=== PATIENT | male | born 1965 | race Hispanic/Latino ===

== ENCOUNTER 2019-05-11 08:51 | Emergency (ER) | payer OTHER ==
--- NOTE | 2019-05-11 09:29 | ER ---
Nurse's Notes [facility] Name: Salomón Lindquist Age: 54 yrs Sex: Male : 1965 Arrival Date: 05/11/2019 Time: 08:57 Bed 7 Private MD: Diagnosis: Hypertension Presentation: 05/11 09:06 Presenting complaint: Patient states: had BP checked at work and it was high, does not iw remember the number, not on any BP meds, denies chest pain, headache or dizziness. Transition of care: patient was not received from another setting of care. 09:06 Method Of Arrival: Ambulatory iw 09:07 Risk Assessment: Do you want to hurt yourself or someone else? Patient reports no iw desire to harm self or others. Initial Sepsis Screen: Does the patient meet any 2 criteria? No. Patient's initial sepsis screen is negative. Does the patient have a suspected source of infection? No. Patient's initial sepsis screen is negative. Care prior to arrival: None. 09:07 Acuity: RAVINDRA 3 iw 09:07 Onset of symptoms was May 11, 2019. aa5 Historical: - Allergies: 09:07 No Known Allergies; iw - Home Meds: 09:07 None [Active]; iw - PMHx: 09:07 None; iw - PSHx: 09:07 None; iw - Immunization history:: Adult Immunizations unknown. - Ebola Screening: : Patient negative for fever greater than or equal to 101.5 degrees Fahrenheit, and additional compatible Ebola Virus Disease symptoms Patient denies exposure to infectious person Patient denies travel to an Ebola-affected area in the 21 days before illness onset No symptoms or risks identified at this time. - Family history:: not pertinent. - Social history:: Smoking status: Patient/guardian denies using tobacco. - Hospitalizations: : No recent hospitalization is reported. Screenin:15 Abuse screen: Denies threats or abuse. Nutritional screening: No deficits noted. aa5 Tuberculosis screening: No symptoms or risk factors identified. Fall Risk None identified. Assessment: 09:07 General: Appears comfortable, Behavior is calm, cooperative. Pain: Denies pain. Neuro: aa5 Level of Consciousness is awake, alert, obeys commands, Oriented to person, place, time, situation. Cardiovascular: Heart tones S1 S2 present Rhythm is regular. Respiratory: Airway is patent Respiratory effort is even, unlabored, Respiratory pattern is regular, symmetrical. GI: No signs and/or symptoms were reported involving the gastrointestinal system. Patient currently denies nausea, vomiting. : No signs and/or symptoms were reported regarding the genitourinary system. EENT: No signs and/or symptoms were reported regarding the EENT system. Derm: Skin is pink, warm \T\ dry. Musculoskeletal: Range of motion: intact in all extremities. 09:20 Reassessment: Patient is alert, oriented x 3, equal unlabored respirations, skin aa5 warm/dry/pink. Patient denies pain at this time. 09:20 Reassessment: Pt given cup of water . aa5 09:52 Reassessment: Patient is alert, oriented x 3, equal unlabored respirations, skin aa5 warm/dry/pink. Patient denies pain at this time. Vital Signs: 09:07 BP 158 / 97; Pulse 80; Resp 16 S; Temp 98.9(O); Pulse Ox 98% on R/A; Weight 63.5 kg aa5 (R); Height 5 ft. 6 in. (167.64 cm) (R); Pain 0/10; 09:40 BP 146 / 85; Pulse 77; Resp 16 S; Pulse Ox 97% on R/A; Pain 0/10; aa5 09:07 Body Mass Index 22.60 (63.50 kg, 167.64 cm) aa5 ED Course: 08:57 Patient arrived in ED. mr 09:03 Artemio Thomas MD is Attending Physician. rn 09:04 Serena Banerjee, MARCIA is Primary Nurse. aa5 09:07 Arm band placed on. iw 09:07 Patient has correct armband on for positive identification. Bed in low position. Call aa5 light in reach. Side rails up X 1. 09:08 Triage completed. iw 09:30 EKG done, by senior laboratory technician. reviewed by Artemio Thomas MD. at1 09:58 No provider procedures requiring assistance completed. Patient did not have IV access aa5 during this emergency room visit. Administered Medications: No medications were administered Outcome: 09:28 Discharge ordered by . rn 09:52 Discharged to home ambulatory. aa5 09:52 Condition: stable 09:52 Discharge instructions given to patient, Instructed on discharge instructions, follow up and referral plans. Demonstrated understanding of instructions, follow-up care. 09:58 Patient left the ED. aa5 Signatures: Flaquita Villatoro Irene, RN Artemio Padgett MD MD rn Calderon, Audri, RN RN aa5 Shannon Lerner, measurement supervisor EKG Tat1
--- NOTE | 2019-05-11 09:29 | EDPHYS ---
Physician Documentation [facility] Name: Salomón Lindquist Age: 54 yrs Sex: Male : 1965 Arrival Date: 05/11/2019 Time: 08:57 Bed 7 Private MD: ED Physician Artemio Thomas HPI: 05/11 09:09 This 54 yrs old Male presents to ER via Ambulatory with complaints of High rn Blood Pressure. 09:09 The patient has elevated blood pressure and discovered this work. Onset: The rn symptoms/episode began/occurred today. Modifying factors:. Severity of symptoms: At its worst the blood pressure was mild, in the emergency department the blood pressure is unchanged. The patient has experienced similar episodes in the past. Reports has intermittent hypertension, has never been put on medication, feels fine, reports felt like BP was elevated, told [facility], and took BP, was elevated, not sure of number, and sent here for medical clearance. States feels fine, currently asymptomatic. Denies chest pain/sob/abd pain/vomiting/diarrhea.. Historical: - Allergies: 09:07 No Known Allergies; iw - Home Meds: 09:07 None [Active]; iw - PMHx: 09:07 None; iw - PSHx: 09:07 None; iw - Immunization history:: Adult Immunizations unknown. - Ebola Screening: : Patient negative for fever greater than or equal to 101.5 degrees Fahrenheit, and additional compatible Ebola Virus Disease symptoms Patient denies exposure to infectious person Patient denies travel to an Ebola-affected area in the 21 days before illness onset No symptoms or risks identified at this time. - Family history:: not pertinent. - Social history:: Smoking status: Patient/guardian denies using tobacco. - Hospitalizations: : No recent hospitalization is reported. ROS: 09:09 Constitutional: Negative for fever, chills, and weight loss, Eyes: Negative for injury, rn pain, redness, and discharge, Neck: Negative for injury, pain, and swelling, Cardiovascular: Negative for chest pain, palpitations, and edema, Respiratory: Negative for shortness of breath, cough, wheezing, and pleuritic chest pain, Abdomen/GI: Negative for abdominal pain, nausea, vomiting, diarrhea, and constipation, MS/Extremity: Negative for injury and deformity, Skin: Negative for injury, rash, and discoloration, Neuro: Negative for headache, weakness, numbness, tingling, and seizure. Exam: 09:09 Constitutional: This is a well developed, well nourished patient who is awake, alert, rn and in no acute distress. Ambulatory to room without difficulty or assistance. Head/Face: Normocephalic, atraumatic. ENT: MMM Neck: Trachea midline, no thyromegaly or masses palpated, and no cervical lymphadenopathy. Supple, full range of motion without nuchal rigidity, or vertebral point tenderness. No Meningismus. Cardiovascular: Regular rate and rhythm. No pulse deficits. Respiratory: Lungs have equal breath sounds bilaterally, clear to auscultation. No increased work of breathing, no retractions or nasal flaring. Abdomen/GI: soft, non-tender MS/ Extremity: Pulses equal, no cyanosis. Neurovascular intact. Full, normal range of motion. Equal circumference. Neuro: Awake and alert, GCS 15, oriented to person, place, time, and situation. Cranial nerves II-XII grossly intact. Motor strength 5/5 in all extremities. Sensory grossly intact. Cerebellar exam normal. Normal gait. 09:24 ECG was reviewed by the Attending Physician. rn Vital Signs: 09:07 BP 158 / 97; Pulse 80; Resp 16 S; Temp 98.9(O); Pulse Ox 98% on R/A; Weight 63.5 kg aa5 (R); Height 5 ft. 6 in. (167.64 cm) (R); Pain 0/10; 09:40 BP 146 / 85; Pulse 77; Resp 16 S; Pulse Ox 97% on R/A; Pain 0/10; aa5 09:07 Body Mass Index 22.60 (63.50 kg, 167.64 cm) aa5 MDM: 09:03 Patient medically screened. rn 09:24 Differential diagnosis: asymptomatic HTN. Data reviewed: vital signs, nurses notes, rn EKG, and as a result, I will discharge patient. Test interpretation: by ED physician or midlevel provider: ECG. Counseling: I had a detailed discussion with the patient and/or guardian regarding: the historical points, exam findings, and any diagnostic results supporting the discharge/admit diagnosis, the need for outpatient follow up, to return to the emergency department if symptoms worsen or persist or if there are any questions or concerns that arise at home. Special discussion: I discussed with the patient/guardian in detail that at this point there is no indication for admission to the hospital. It is understood, however, that if the symptoms persist or worsen the patient needs to return immediately for re-evaluation. Based on the history and exam findings, there is no indication for further emergent testing or inpatient evaluation. I discussed with the patient/guardian the need to see the primary care provider for further evaluation of the symptoms. ED course: Recommend buying BP machine for home with documentation, doesn't have trend or average to justify medication. Will f/u with pcp when gets money.. 05/11 09:11 Order name: EKG; Complete Time: :13 bd EC:24 Rate is 82 beats/min. Rhythm is regular. Left axis deviation noted. QRS is positive in rn lead I and negative in lead aVF. NM interval is normal. QRS interval is normal. QT interval is normal. No Q waves. T waves are Normal. No ST changes noted. Clinical impression: No evidence of ischemia. Interpreted by me. Reviewed by me. Administered Medications: No medications were administered Disposition: 05/11/19 09:28 Discharged to Home. Impression: Hypertension. - Condition is Stable. - Discharge Instructions: Hypertension. - Medication Reconciliation Form, Thank You Letter, Antibiotic Education, Prescription Opioid Use, Work release form form. - Follow up: Private Physician; When: As needed; Reason: Recheck today's complaints, Re-evaluation by your physician. - Problem is new. - Symptoms have improved. Signatures: Caitie Alexandra RN RN iw Nieto, Roman, MD MD rn Calderon, Audri, RN RN aa5 Corrections: (The following items were deleted from the chart) 09:58 09:28 05/11/2019 09:28 Discharged to Home. Impression: Hypertension. Condition is aa5 Stable. Forms are Medication Reconciliation Form, Thank You Letter, Antibiotic Education, Prescription Opioid Use. Follow up: Private Physician; When: As needed; Reason: Recheck today's complaints, Re-evaluation by your physician. Problem is new. Symptoms have improved. rn
[2019-05-11 10:06] VITALS: TEMP 98.9
[2019-05-11 10:09] VITALS: BP 146/85; O2SAT 97
--- NOTE | 2019-05-11 10:37 | EKG ---
Test Date: 2019-05-11 Test Time: 09:23:16 Alteration Inspector: ENRIQUE MEASUREMENT RESULTS: Intervals: Rate: 82 IN: 134 QRSD: 98 QT: 386 QTc: 450 Fletcher: P: 54 IN: 134 QRS: -67 T: 45 INTERPRETIVE STATEMENTS: Normal sinus rhythm Left axis deviation Abnormal ECG No previous ECG available for comparison Electronically Signed On 05-11-19 10:36:28 CDT by Denzel Theodore
== END 2019-05-11 09:58 | disposition home or self-care (01) ==
LOC: ER 08:51
DX: I10 Essential (primary) hypertension (principal)
CPT/HCPCS: 93005; 99283